=== PATIENT | male | born 1990 | race Caucasian/White ===

== ENCOUNTER 2017-10-09 13:50 | Emergency (ER) | payer OTHER ==
[2017-10-09 14:06] VITALS: RESP 18
--- NOTE | 2017-10-09 14:42 | EDPHY ---
H & P Stated Complaint: possible concussion from last thursday ([place] since) Time Seen by Provider: 10/09/17 14:37 - Personal History Current Tetanus Diphtheria and Acellular Pertussis (TDAP): Unsure - Medical/Surgical History Hx Asthma: No Hx Chronic Respiratory Disease: No Hx Diabetes: No Hx Cardiac Disease: No Hx Renal Disease: No Hx Cirrhosis: No Hx Alcoholism: No Hx HIV/AIDS: No Hx Splenectomy or Spleen Trauma: No - Social History Smoking Status: Former smoker Constitutional: Initial Vital Signs Temperature (C) 36.5 C 10/09/17 14:02 Heart Rate 63 10/09/17 14:02 Respiratory Rate 18 10/09/17 14:02 Blood Pressure 126/76 H 10/09/17 14:02 O2 Sat (%) 95 10/09/17 14:02 O2 Delivery Mode Room Air Allergies/Adverse Reactions: No Known Allergies Allergy (Unverified 10/09/17 14:06) Home Medications: Medication Instructions Recorded Ondansetron Odt [Zofran Odt 4 mg 4 mg PO Q4 PRN #10 tab 10/09/17 (RX)] Medical Decision Making ED Course/Re-evaluation: CHIEF COMPLAINT: Headache, concussion. HISTORY OF PRESENT ILLNESS: The patient is a 27 y/o male complaining of a headache after striking his head while snowboarding 6 days ago. He fell while snowboarding on ice and struck his head on the ground. He was wearing a helmet, did not lose consciousness, and remembers the entire event. He was able to snowboarding down the hill and denies any weakness or paresthesias. He's had intermittent nausea, "wooziness," and mild headache with photophobia most noticeable during computer work since the injury. He is normally healthy with no history of prior head injuries or anticoagulant use. REVIEW OF SYSTEMS: A 10 point review of systems was performed and is negative with the exception of the elements mentioned in the history of present illness. PHYSICAL EXAM: HR, BP, O2 Sat, RR. Temp noted General Appearance: Alert, well hydrated, appropriate, and non-toxic appearing. Head: Atraumatic without scalp tenderness or obvious injury Eyes: Pupils equal, round, reactive to light and accommodation, EOMI, no trauma , no injection. Ears: Clear bilaterally, no perforation, normal landmarks Nose: Atraumatic, no rhinorrhea, clear. Throat: There is no erythema or exudates, no lesions, normal tonsils, mucus membranes moist. Neck: Supple, non-tender, no lymphadenopathy. Respiratory: No retractions, no distress, no wheezes, and no accessory muscle use. Lungs are clear to auscultation bilaterally. Cardiovascular: Regular rate and rhythm, no murmurs, rubs, or gallops. Good capillary refill all extremities. Gastrointestinal: Abdomen is soft, non-tender, non-distended, no masses, no rebound, no guarding, no peritoneal signs. Musculoskeletal: Normal active ROM of all extremities, atraumatic. Neurological: Alert, appropriate, and interactive. The patient has non-focal cranial nerves, motor, sensory, and cerebellar exam. Skin: No rashes, good turgor, no nodules on palpation. PAST MEDICAL HISTORY: Denies PAST SURGICAL HISTORY: Denies SOCIAL HISTORY: Employed DIFFERENTIAL DIAGNOSIS: The differential diagnosis for the patient's head injury included but was not limited to concussion, skull fracture, intra- parenchymal contusion, subarachnoid, subdural and epidural hematoma. MEDICAL DECISION MAKING: This is a healthy 27 y/o male who presents with a 6-day history of intermittent nausea, headache with photophobia, and "wooziness" secondary to a head injury while snowboarding. He has a completely normal exam, no visible trauma, no neuro deficits. He does not meet criteria for head imaging due to length of time since injury, no loss of consciousness, no visible head trauma, no neuro deficits, no amnesia, and no anticoagulants. Discussed this recommendation with the patient and he agrees to not proceed with imaging. He will be discharged with standard post concussive syndrome care and follow up instructions. Departure - Departure Disposition: Home, Routine, Self-Care Clinical Impression: Post concussive syndrome Condition: Good Instructions: Concussion (ED), Post Concussion Syndrome (ED) Additional Instructions: 1. Cognitive rest while symptoms are present. Avoid screen time including TV, phone, computers, video games. Slowly advance activity as tolerated and back off if symptoms worsen. 2. Physical rest for 10-14 days or longer if symptoms are still present. Avoid any activities that could put you at risk for a recurrent head injury during this period. Ex. contact sports, skiing/snowboarding, bicycling etc. 3. Use Tylenol and ibuprofen as directed on the packaging as needed for headache over the next few days. 4. Use Zofran as prescribed if needed for nausea or vomiting. 5. Follow up with Dr. Carranza, head injury specialist, for unimproved symptoms over the next 10-14 days. 6. Return to the ED for severe headache, weakness or numbness on one side of your body, uncontrollable vomiting, speech difficulty, or other worsening of condition. Referrals: Xena Carranza MD [Medical Doctor] - As per Instructions Prescriptions: Ondansetron Odt [Zofran Odt 4 mg (RX)] 4 mg PO Q4 PRN #10 tab PRN Reason: Nausea/Vomiting, Use 1st Report Scribed for: Frantz Salgado Report Scribed by: Kim Woodard Date of Report: 10/09/17 Time of Report: 14:42
[2017-10-09 15:02] VITALS: BP 114/70; PULSE 73; TEMP 98.2; O2SAT 94
== END 2017-10-09 15:00 | disposition home or self-care (01) ==
DX: S06.0X0A Concussion without loss of consciousness, initial encounter (principal); Z87.891 Personal history of nicotine dependence; V00.311A Fall from snowboard, initial encounter; Y99.8 Other external cause status; Y93.23 Activity, snow (alpine) (downhill) skiing, snowboarding, sledding, tobogganing and snow tubing